=== PATIENT | female | born 1990 | race Caucasian/White ===

== ENCOUNTER 2022-02-10 08:22 | Emergency (ER) | payer BC ==
[2022-02-10 09:13] LABS: #Basophils 0.1 10x3/uL (0.0-0.2); #Eosinphils 0.2 10x3/uL (0.0-0.5); #Monocytes 0.4 10x3/uL (0.0-1.1); #Neutrophils 6.6 10x3/uL (1.5-8.4); %Basophils 0.9 % (0.0-2.0); %Eosinophils 1.8 % (0.0-6.0); %Lymphocytes 18.9 % (18.0-47.0); %Monocytes 4.8 % (0.0-10.0); Hemoglobin 14.4 g/dL (12.0-15.5); Mean Corpuscular HGB CONC 33.7 g/dL (32.0-36.0); Mean Corpuscular Hemoglobin 29.6 pg (27.0-33.0); Mean Corpuscular Volume 87.7 fl (81.6-98.3); Platelet Count 299 10x3/uL (150-450); RBC Distribution Width 12.5 % (11.5-14.5); Red Blood Cell (RBC) Count 4.87 10x6/uL (3.90-5.03)
[2022-02-10 09:25] LABS: Bilirubin Neg (Negative); Blood, Urine 250 (Negative); Clarity Cloudy (Clear); Glucose, Urine (Dipstick) Normal (Negative); Ketone, Urine Negative (Negative); Leukocyte Negative (Negative); Nitrite Negative (Negative); Protein, Urine (Dipstick) 15 mg/dl (Neg-Trace); Urobilinogen Normal mg/dL (Less than 2)
[2022-02-10 09:36] LABS: Bacteria/HPF Rare-Few HPF (None Seen); RBC/HPF 21-50 HPF (0-3); Squamous Epithelial 0-3 HPF (0-3); WBC/HPF 0-3 HPF (0-3)
[2022-02-10 09:37] LABS: ALT (SGPT) 22 U/L (8-55); AST (SGOT) 20 U/L (5-34); Albumin 4.4 g/dL (3.5-5.0); Alkaline Phosphatase 62 U/L (40-110); Anion Gap 16 mmol/L (10-20); BUN (Urea Nitrogen) 8 mg/dL (7.0-18.7); Bilirubin, Total 0.6 mg/dL (0.2-1.2); Calc. Creatinine Clearance 0 mL/min (70-130); Calcium 9.1 mg/dL (7.8-10.44); Carbon Dioxide 23 mmol/L (22-29); Chloride 104 mmol/L (98-107); Estimated GFR 107; Globulin 2.9 g/dL (2.4-3.5); Glucose 103 mg/dL (70-105); Potassium 3.8 mmol/L (3.5-5.1); Protein, Total 7.3 g/dL (6.0-8.3); Sodium 139 mmol/L (136-145)
[2022-02-10 18:56] LABS: Chlamydia by PCR Not Detected (NotDetected); GC by PCR Not Detected (NotDetected)
== END 2022-02-10 11:22 | disposition home or self-care (01) ==
LOC: CSHERS 08:22
DX: O23.591 Infection of other part of genital tract in pregnancy, first trimester (principal); B96.89 Other specified bacterial agents as the cause of diseases classified elsewhere; O20.9 Hemorrhage in early pregnancy, unspecified
CPT/HCPCS: 76856; 80053; 81003; 81015; 84702; 85025; 86900; 86901; 87480; 87491; 87510; 87591; 87660

== ENCOUNTER 2023-07-03 05:00 | Inpatient (IN) | payer BC ==
[2023-07-04] MEDS ORDERED: Tranexamic Acid 1,000 MG/10 ML VIAL IVP PRN (11:37)
[2023-07-04] MEDS ORDERED: Carboprost 250 MCG/ML AMP IM PRN (11:37)
[2023-07-04] MEDS ORDERED: Zolpidem Tartrate 5 MG TAB PO PRN (11:37)
[2023-07-04] MEDS ORDERED: Promethazine HCl 25 MG/ML VIAL IM PRN (11:37)
[2023-07-04] MEDS ORDERED: Misoprostol 200 MCG TAB PR PRN (11:37)
[2023-07-04] MEDS ORDERED: Ibuprofen 800 MG TAB PO PRN (11:37)
[2023-07-04] MEDS ORDERED: Lidocaine 1% (PF) 30 ML VIAL SC PRN (11:37)
[2023-07-04] MEDS ORDERED: Ondansetron PF 4 MG/2 ML Vial IVP PRN (11:37)
[2023-07-04] MEDS ORDERED: HYDROcodone/Acetaminophen 5/325 mg Tablet PO PRN ×2 (11:37)
[2023-07-04] MEDS ORDERED: Oxytocin 30 units/NS 500 ML 500 ML IV SCH ×2 (11:37)
[2023-07-04] MEDS ORDERED: hydrALAZINE 20 MG/ML VIAL SLOW IVP PRN (11:37)
[2023-07-04] MEDS ORDERED: Diphenoxylate HCl/Atropine Tablet PO PRN ×2 (11:37)
[2023-07-04 11:40] VITALS: BMI 40.3
[2023-07-04 12:36] LABS: Hematocrit 37.1 % (34.9-44.5); Hemoglobin 12.8 g/dL (12.0-15.5); Mean Corpuscular HGB CONC 34.5 g/dL (32.0-36.0); Mean Corpuscular Volume 87.1 fl (81.6-98.3); Mean Platelet Volume 11.2 fl (7.4-10.4); Platelet Count 273 10x3/uL (150-450); RBC Distribution Width 13.4 % (11.5-14.5); Red Blood Cell (RBC) Count 4.26 10x6/uL (3.90-5.03); White Blood Cell (WBC) Count 10.6 10x3/uL (3.5-10.5)
[2023-07-04 12:55] LABS: Hep B Surf Ag - L&D Non-Reactive S/CO (NonReactive)
[2023-07-04 12:57] LABS: Syphilis Antibody Nonreactive (Nonreactive); Syphilis Antibody Index 0.03 S/CO (<1.00 Non-Reactive)
[2023-07-04] MEDS: Misoprostol 100 MCG TAB VAG SCH (14:15)
[2023-07-05] MEDS ORDERED: Sodium Bicarbonate 2.5 MEQ/5 ML VIAL ONE (07:03)
[2023-07-05] MEDS ORDERED: fentaNYL/Ropivacaine Epidural 100 ML ONE (07:04)
[2023-07-05] MEDS: Lactated Ringer's 1,000 ML IV SCH (07:23)
[2023-07-05] MEDS ORDERED: Ondansetron PF 4 MG/2 ML Vial IVP PRN (08:47)
[2023-07-05] MEDS ORDERED: Lactated Ringer's 500 ML IV PRN (08:47)
[2023-07-05] MEDS ORDERED: Moisturizing Cream (Eucerin) 113 GM JAR TOP PRN (08:47)
[2023-07-05] MEDS ORDERED: Acetaminophen 325 MG TAB PO PRN (08:47)
[2023-07-05] MEDS ORDERED: diphenhydrAMINE 50 MG/ML VIAL IVP PRN (08:47)
[2023-07-05] MEDS ORDERED: ePHEDrine Sulfate 50 MG/10 ML VIAL SLOW IVP PRN (08:47)
[2023-07-05] MEDS ORDERED: Promethazine HCl 25 MG/ML VIAL IM PRN (08:47)
[2023-07-05] MEDS ORDERED: Naloxone HCl 0.4 mg/ml Vial IVP PRN ×2 (08:47)
[2023-07-05] MEDS ORDERED: fentaNYL 2 mcg/Ropivacaine 0.2% Epidural 100 ML CADD EPIDURAL SCH (09:00)
[2023-07-05] MEDS ORDERED: Communication Order-Pharmacy FS SCH (09:00)
[2023-07-05] MEDS ORDERED: Bupivacaine 0.25% HCL 30 ML VIAL ONE (15:00)
[2023-07-05] MEDS ORDERED: Lidocaine 1% (PF) 30 ML VIAL ONE (15:50)
[2023-07-05] MEDS ORDERED: Benzocaine-Menthol 82.5 ML CAN TOP PRN (16:42)
[2023-07-05] MEDS ORDERED: hydrALAZINE 20 MG/ML VIAL SLOW IVP PRN (16:42)
[2023-07-05] MEDS ORDERED: Boostrix 0.5 ML (Tdap) VIAL (>/=7 yrs of age) IM ONE (16:42)
[2023-07-05] MEDS ORDERED: Bisacodyl 10 MG SUPP PR PRN (16:42)
[2023-07-05] MEDS ORDERED: diphenhydrAMINE 25 MG CAP PO PRN (16:42)
[2023-07-05] MEDS ORDERED: Lanolin Ointment 7 GM TUBE TOP PRN (16:42)
[2023-07-05] MEDS ORDERED: Milk Of Magnesia 30 ML UDCUP PO PRN (16:42)
[2023-07-05] MEDS: traMADol HCl 50 MG TAB PO PRN ×2 (17:06→23:10)
[2023-07-05] MEDS ORDERED: Oxytocin 30 units/NS 500 ML 500 ML ONE (18:12)
[2023-07-05] MEDS ORDERED: Misoprostol 200 MCG TAB ONE (18:12)
[2023-07-05] MEDS ORDERED: Tranexamic Acid 1,000 MG/10 ML VIAL ONE (18:18)
[2023-07-05] MEDS ORDERED: Carboprost 250 MCG/ML AMP ONE (18:18)
[2023-07-05] MEDS ORDERED: Methylergonovine 0.2 MG/ML VIAL ONE (18:18)
[2023-07-05] MEDS: fentaNYL 50 mcg/mL 1 mL Vial ONE ×2 (18:27→18:28)
[2023-07-05 19:40] LABS: D-Dimer Test 21.64 mg/L FEU (0.19-0.50); INR-International Normal Ratio 0.9; PTT 24.5 sec (22.0-33.0); Prothrombin Time 9.9 sec (9.5-12.1)
[2023-07-05 20:00] LABS: Hematocrit 37.1 % (34.9-44.5); Hemoglobin 12.3 g/dL (12.0-15.5); Mean Corpuscular HGB CONC 33.2 g/dL (32.0-36.0); Mean Corpuscular Hemoglobin 29.6 pg (27.0-33.0); Mean Corpuscular Volume 89.2 fl (81.6-98.3); Platelet Count 254 10x3/uL (150-450); RBC Distribution Width 13.3 % (11.5-14.5); Red Blood Cell (RBC) Count 4.16 10x6/uL (3.90-5.03); White Blood Cell (WBC) Count 22.2 10x3/uL (3.5-10.5)
[2023-07-05 20:13] LABS: MDiff Complete? YES
[2023-07-05 20:32] LABS: Band 23 % (5-11); Lymphocytes 4 % (21-51); Monocytes 2 % (0-10); Neutrophil 70 % (42-75); Reactive Lymphocytes 1 % (0-10)
[2023-07-05 20:34] LABS: Microcytosis SLIGHT = 6-15 cells (100X) (0-5/hpf); Platelet Adequacy Comment Appears Adequate; Stomatocytes SLIGHT = 2-5 cells (100X) (0-1/hpf)
[2023-07-05] MEDS: Ibuprofen 800 MG TAB PO SCH (23:10)
[2023-07-06] MEDS: Ibuprofen 800 MG TAB PO SCH ×3 (05:04→21:42)
[2023-07-06] MEDS: Ferrous Sulfate 325 MG TAB PO SCH ×3 (08:14→16:30)
[2023-07-06] MEDS: Prenatal Vitamin 1 TAB PO SCH (08:14)
[2023-07-06] MEDS: Docusate 100 MG CAP PO SCH ×2 (08:14→21:42)
[2023-07-06 08:52] LABS: Hematocrit 28.6 % (34.9-44.5); Hemoglobin 9.7 g/dL (12.0-15.5); Mean Corpuscular HGB CONC 33.9 g/dL (32.0-36.0); Mean Corpuscular Hemoglobin 30.3 pg (27.0-33.0); Mean Corpuscular Volume 89.4 fl (81.6-98.3); Mean Platelet Volume 11.1 fl (7.4-10.4); Platelet Count 209 10x3/uL (150-450); RBC Distribution Width 13.3 % (11.5-14.5); White Blood Cell (WBC) Count 15.5 10x3/uL (3.5-10.5)
[2023-07-07] MEDS: Ibuprofen 800 MG TAB PO SCH ×2 (06:42→14:52)
[2023-07-07] MEDS: Docusate 100 MG CAP PO SCH ×2 (07:41→08:28)
[2023-07-07] MEDS: Ferrous Sulfate 325 MG TAB PO SCH ×2 (07:42→08:28)
[2023-07-07] MEDS: Misoprostol 100 MCG TAB VAG SCH ×4 (07:43→07:56)
[2023-07-07] MEDS: Lactated Ringer's 1,000 ML IV SCH ×2 (07:44→07:56)
[2023-07-07 07:48] VITALS: BP 112/72; TEMP 97.8
[2023-07-07] MEDS: Prenatal Vitamin 1 TAB PO SCH (08:28)
== END 2023-07-07 19:20 | disposition home or self-care (01) | DRG 806 ==
LOC: CSHLD 07-04 10:56 → CSHPP 07-05 22:25
PROVIDERS: ADMIT Obstetrics & Gynecology; ATTEND Obstetrics & Gynecology
PROC: 10E0XZZ Delivery of Products of Conception, External Approach (ICD-10-PCS; principal; 2023-07-05)
DX: O36.63X0 Maternal care for excessive fetal growth, third trimester, not applicable or unspecified (principal); O70.20 Third degree perineal laceration during delivery, unspecified; Z37.0 Single live birth; O72.2 Delayed and secondary postpartum hemorrhage; Z3A.38 38 weeks gestation of pregnancy; O99.893 Other specified diseases and conditions complicating puerperium; R00.0 Tachycardia, unspecified; O90.81 Anemia of the puerperium; D50.0 Iron deficiency anemia secondary to blood loss (chronic)
CPT/HCPCS: 36415; 51702; 85025; 85027; 85049; 85300; 85362; 85379; 85384; 85610; 85730; 86780; 86850; 86900; 86901; 87340; J2001; J2210; J2590; J3010; J7120; S0020

== ENCOUNTER 2025-04-10 20:05 | Inpatient (IN) | payer BC ==
[~2025-04-10 20:05] MED LIST: Bupivacaine 0.25% HCL 30 ML VIAL ONE
[2025-04-10] MEDS ORDERED: Acetaminophen 500 MG TAB PO PRN (20:34)
[2025-04-10] MEDS ORDERED: Tranexamic Acid 1,000 MG/10 ML VIAL IVP PRN (20:34)
[2025-04-10] MEDS ORDERED: Ondansetron PF 4 MG/2 ML Vial IVP PRN (20:34)
[2025-04-10] MEDS ORDERED: hydrALAZINE 20 MG/ML VIAL SLOW IVP PRN (20:34)
[2025-04-10] MEDS ORDERED: Diphenoxylate HCl/Atropine Tablet PO PRN ×2 (20:34)
[2025-04-10] MEDS ORDERED: Methylergonovine 0.2 MG/ML VIAL IM PRN (20:34)
[2025-04-10] MEDS ORDERED: Lidocaine 1% (PF) 30 ML VIAL SC PRN (20:34)
[2025-04-10] MEDS ORDERED: Carboprost 250 MCG/ML AMP IM PRN (20:34)
[2025-04-10] MEDS ORDERED: HYDROcodone/Acetaminophen 5/325 mg Tablet PO PRN ×2 (20:34)
[2025-04-10 20:35] VITALS: BMI 42.6
[2025-04-10 21:21] LABS: Hematocrit 38.8 % (34.9-44.5); Hemoglobin 13.0 g/dL (12.0-15.5); Mean Corpuscular Hemoglobin 29.4 pg (27.0-33.0); Mean Corpuscular Volume 87.8 fL (81.6-98.3); Platelet Count 235 10x3/uL (150-450); Red Blood Cell (RBC) Count 4.42 10x6/uL (3.90-5.03); White Blood Cell (WBC) Count 12.14 10x3/uL (3.5-10.5)
[2025-04-10 21:54] LABS: Syphilis Antibody Index 0.07 S/CO (<1.00 Non-Reactive)
[2025-04-10 21:55] LABS: Hep B Surf Ag - L&D Non-Reactive S/CO (NonReactive)
[2025-04-11] MEDS: Oxytocin 30 units/NS 500 ML 500 ML IV SCH ×2 (06:30→14:04)
[2025-04-11] MEDS ORDERED: Acetaminophen 325 MG TAB PO PRN (10:14)
[2025-04-11] MEDS ORDERED: Ondansetron PF 4 MG/2 ML Vial IVP PRN (10:14)
[2025-04-11] MEDS ORDERED: diphenhydrAMINE 50 MG/ML VIAL IVP PRN (10:14)
[2025-04-11] MEDS ORDERED: Communication Order-Pharmacy FS SCH (10:15)
[2025-04-11] MEDS ORDERED: fentaNYL 2 mcg/Ropivacaine 0.2% Epidural 100 ML CADD EPIDURAL SCH (10:15)
[2025-04-11] MEDS: fentaNYL/Ropivacaine Epidural 100 ML ONE (10:22)
[2025-04-11] MEDS: Ibuprofen 800 MG TAB PO PRN (16:08)
[2025-04-11] MEDS ORDERED: Milk Of Magnesia 30 ML UDCUP PO PRN (16:38)
[2025-04-11] MEDS ORDERED: Preparation H Ointment 28 GM TUBE PR PRN (16:38)
[2025-04-11] MEDS ORDERED: Lanolin Ointment 7 GM TUBE TOP PRN (16:38)
[2025-04-11] MEDS ORDERED: Bisacodyl 10 MG SUPP PR PRN (16:38)
[2025-04-11] MEDS ORDERED: hydrALAZINE 20 MG/ML VIAL SLOW IVP PRN (16:38)
[2025-04-11] MEDS: Boostrix 0.5 ML (Tdap) VIAL (>/=7 yrs of age) IM ONE (18:43)
[2025-04-11] MEDS: Ferrous Sulfate 325 MG TAB PO SCH (18:43)
[2025-04-11] MEDS: Ibuprofen 800 MG TAB PO SCH (23:47)
[2025-04-12] MEDS: Benzocaine-Menthol 82.5 ML CAN TOP PRN (08:52)
[2025-04-12 11:38] VITALS: BP 113/71; TEMP 98
== END 2025-04-12 15:40 | disposition home or self-care (01) | DRG 807 ==
LOC: CSHLD 20:05 → CSHPP 04-11 17:20
PROVIDERS: ADMIT Obstetrics & Gynecology; ATTEND Obstetrics & Gynecology
PROC: 10E0XZZ Delivery of Products of Conception, External Approach (ICD-10-PCS; principal; 2025-04-11)
PROC: 0KQM0ZZ Repair Perineum Muscle, Open Approach (ICD-10-PCS; 2025-04-11)
PROC: 10907ZC Drainage of Amniotic Fluid, Therapeutic from Products of Conception, Via Natural or Artificial Opening (ICD-10-PCS; 2025-04-11)
DX: O99.214 Obesity complicating childbirth (principal); Z37.0 Single live birth; O70.1 Second degree perineal laceration during delivery; Z3A.39 39 weeks gestation of pregnancy
CPT/HCPCS: 51702; 85027; 86780; 86850; 86900; 86901; 87340; J0665; J2590